=== PATIENT | male | born 1950 | race Caucasian/White ===

== ENCOUNTER 2021-10-06 17:15 | Emergency (ER) | payer OTHER, SELFPAY ==
[2021-10-07 00:42] LABS: SARS-CoV-2 PCR by NAA Not Detected (NotDetected)
== END 2021-10-06 19:00 | disposition expired ==
LOC: NAV ERS 17:15
DX: I46.9 Cardiac arrest, cause unspecified (principal); Z20.822 Contact with and (suspected) exposure to COVID-19; Z79.02 Long term (current) use of antithrombotics/antiplatelets; Z79.84 Long term (current) use of oral hypoglycemic drugs
CPT/HCPCS: 99285; U0003; U0005